=== PATIENT | female | born 1960 | race Caucasian/White ===

== ENCOUNTER 2018-08-14 12:18 | Emergency (ER) | payer MEDICAID ==
[~2018-08-14] VITALS: Ht 154.9 cm; Wt 63.6 kg
[2018-08-14 12:20] VITALS: Ht 154.9 cm; Wt 63.6 kg
[2018-08-14] MEDS ORDERED: ZOVIRAX200 MG PO (12:22)
[2018-08-14 14:53] VITALS: BP 136/100
== END 2018-08-14 14:25 | disposition left against medical advice (07) ==
LOC: D.ER 12:18
DX: R51 Headache (principal); R42 Dizziness and giddiness; F17.200 Nicotine dependence, unspecified, uncomplicated

== ENCOUNTER 2018-12-20 17:31 | Emergency (ER) | payer SELFPAY ==
[~2018-12-20] VITALS: Ht 154.9 cm; Wt 68.2 kg
[~2018-12-20 17:31] MED LIST: ZOVIRAX200 MG PO
[2018-12-20 17:42] VITALS: BP 125/85; Ht 154.9 cm; Wt 68.2 kg
== END 2018-12-20 18:43 | disposition left against medical advice (07) ==
LOC: D.ER 17:31
DX: F10.129 Alcohol abuse with intoxication, unspecified (principal)